=== PATIENT | female | born 1960 | race Caucasian/White ===

== ENCOUNTER 2018-04-05 06:41 | Day surgery (SDC) | payer OTHER ==
--- NOTE | 2018-04-05 06:14 | PDANEPAE ---
ANE History of Present Illness 57 yo female with h/o rectal bleeding for diagnostic colonoscopy. ANE Past Medical History - Cardiovascular History Hx Hypertension: No Hx Arrhythmias: No Hx Chest Pain: No Hx Coronary Artery / Peripheral Vascular Disease: No Hx CHF / Valvular Disease: No Hx Palpitations: No - Pulmonary History Hx COPD: No Hx Asthma/Reactive Airway Disease: No Hx Recent Upper Respiratory Infection: No Hx Oxygen in Use at Home: No Hx Sleep Apnea: No Sleep Apnea Screening Result - Last Documented: Negative - Neurologic History Hx Cerebrovascular Accident: No Hx Seizures: No Hx Dementia: No - Endocrine History Hx Diabetes: No Hypothyroid: Yes Hyperthyroid: No Obesity: no - Renal History Hx Renal Disorders: No - Liver History Hx Hepatic Disorders: No - Neurological & Psychiatric Hx Hx Neurological and Psychiatric Disorders: Yes Neurological / Psychiatric History Comment: ANXIETY/DEPRESSION - Cancer History Hx Cancer: No - Congenital Disorder History Hx Congenital Disorders: No - GI History Hx Gastrointestinal Disorders: No - Other Health History Other Health History: hemorrhoids - Chronic Pain History Chronic Pain: No - Surgical History Prior Surgeries: FOOT SURG L ANE Review of Systems Review of systems is: negative Review of Systems: - Exercise capacity METS (RN): 5 METS ANE Patient History - Allergies Allergies/Adverse Reactions: No Known Allergies Allergy (Unverified 03/23/18 10:57) - Home Medications Home Medications: Escitalopram Oxalate 03/23/18 [Last Taken 04/04/18] Levothyroxine 03/23/18 [Last Taken 04/04/18] - NPO status NPO Status: no food or drink >8 hours - Anes Hx Anes Hx: no prior problems - Smoking Hx Smoking Status: Never smoked Marijuana use: No - Family Anes Hx Family Anes Hx: neg - N/A Family Hx Anesthesia Complications: NEG ANE Labs/Vital Signs - Vital Signs Vital Signs: reviewed preoperatively; see RN documention for details Height: 165.1 cm Weight: 72.575 kg ANE Physical Exam - Airway Neck exam: FROM Mallampati Score: Class 2 Mouth exam: normal dental/mouth exam - Pulmonary Pulmonary: clear to auscultation - Cardiovascular Cardiovascular: regular rate and rhythym - ASA Status ASA Status: II ANE Anesthesia Plan Anesthesia Plan: GA with mask Total IV Anesthesia: Yes
--- NOTE | 2018-04-05 06:14 | POSTANESTH ---
Post Anesthetic Evaluation Cardiovascular Status: Normal, Stable Respiratory Status: Normal, Stable Level of Consciousness/Mental Status: Can Participate in Eval, Alert and Oriented Pain Control: Adequate, Prn Tx Ordered Nausea/Vomiting Control: Adequate, Prn Tx Ordered Complications Possibly Related to Anesthesia: None Noted
[2018-04-05] MEDS ORDERED: LR 1,000 ML IV ONE (06:47)
--- NOTE | 2018-04-05 07:23 | PDHPUP ---
History & Physical Update H&P update statement: This history and physical update is based on an assessment of the patient which was completed after admission or registration (within 24 hours), but prior to the surgery/procedure. H&P update: H&P reviewed & patient examined, no change in patient's condition since H&P completed
[2018-04-05] MEDS ORDERED: DEXAMETHASONE 4 MG/ML VIAL ONE (08:09)
[2018-04-05] MEDS ORDERED: PROPOFOL/EMULSION 500 MG/50 ML BOTTLE IV ONE (08:09)
[2018-04-05] MEDS ORDERED: LIDOCAINE 2% 2 ML INJ ONE (08:09)
[2018-04-05] MEDS ORDERED: LR 500 ML IV PRN (08:52)
[2018-04-05] MEDS ORDERED: ACETAMINOPHEN 500 MG TAB PO PRN (08:52)
--- NOTE | 2018-04-05 08:56 | POSTOPPROG ---
Post Op Note Date of Operation: 04/05/18 Surgeon: Sergio Torres Anesthesia: IV Sedation Pre-op Diagnosis: hemorrhoidal bleeding Post-op Diagnosis: same Procedure: Colonoscopy Findings: Internal and external hemorrhoids grade 2 Inf/Abcess present in the surg proc area at time of surgery?: No
--- NOTE | 2018-04-05 09:13 | GOP ---
DATE OF OPERATION: SURGEON: Sergio Torres MD ANESTHESIA: IV general is used. ANESTHESIOLOGIST: Dr. Patel. PREOPERATIVE DIAGNOSIS: Hemorrhoids, internal and external. POSTOPERATIVE DIAGNOSIS: Hemorrhoids, internal and external. PROCEDURE PERFORMED: Colonoscopy to terminal ileum. FINDINGS: INDICATIONS: This is a 57-year-old woman who presents, after having hemorrhoid issues with bleeding and pain, for colonoscopy. Last colonoscopy over 8 years ago. DESCRIPTION OF PROCEDURE: The patient was brought into the GI suite. After induction of IV sedation , she was placed in left lateral decubitus position. Digital rectal exam was performed in standard f ashion. Internal and external hemorrhoids were noted, grade 2. There were no signs of rectal prolap se. No fissures. No anorectal disease beyond the hemorrhoids. The endoscope was introduced into th e rectum and advanced all the way to the terminal ileum. There was a tortuosity of her colon, but th ere was no pathology that was noted. After intubating the cecum, premium representative pictures were taken on withdrawal of the scope. Circumferential inspection of greater than 95% of the colonic mucosa was done on withdrawal. The patient tolerated it well. Desufflation of the colon was done also on with drawal. The patient was awakened, taken to the recovery room in stable condition. No immediate comp lications. COMPLICATIONS: There were no complications. /[id number]/MODL
[2018-04-05 09:34] VITALS: BP 114/70
== END 2018-04-05 09:45 | disposition home or self-care (01) ==
LOC: FSGY 06:41
PROVIDERS: ATTEND Surgery
PROC: 0DJD8ZZ Inspection of Lower Intestinal Tract, Via Natural or Artificial Opening Endoscopic (ICD-10-PCS; principal; 2018-04-05 08:15)
DX: K64.1 Second degree hemorrhoids (principal); E03.9 Hypothyroidism, unspecified; F41.8 Other specified anxiety disorders
CPT/HCPCS: J1100; J2704